=== PATIENT | female | born 1960 | race Caucasian/White ===

== ENCOUNTER 2018-08-15 13:49 | Inpatient (IN) | payer OTHER ==
[~2018-08-15] VITALS: Ht 177.8 cm; Wt 95.2 kg
[~2018-08-15 13:49] MED LIST: ALBU90OI INH; ALBU90OI61 INH; ASPI325 PO; BENZ100A PO; CALCAVITD PO; CODEINE PO; CYCL10 PO; DULO30 PO; Esgic Tablet1 EACH PO; FARXIGA5 MG PO; FIORINAL PO; GUAI120S1 PO; GUAI600ER PO; HYDMOR4 PO; IBUP800 PO; LEVA.63IS IH; LIRA0.6P IM; LIRA0.6P SC; LISI5 PO; LOVA20 PO; LOVA40 PO; METF500 PO; Norco 10-325 T1 EACH PO; OSEL75CA PO; PRED20 PO; PROM25 PO; ROSU5 PO; SERT100 PO
[2018-08-15 14:34] LABS: BASOPHILS ABSOLUTE AUTO 0.01 K/mm3 (0.00-0.23); BASOPHILS PERCENT AUTO 0 % (0-2); EOSINOPHILS ABSOLUTE AUTO 0.02 K/mm3 (0.00-0.68); EOSINOPHILS PERCENT AUTO 0 % (0-6); Hematocrit 49.4 % (33.0-51.0); Hemoglobin 14.6 g/dL (11.5-16.0); IMMATURE GRAN ABSOLUTE AUTO 0.03 K/mm3 (0.00-0.10); IMMATURE GRAN PERCENT AUTO 1 % (0-1); LYMPHOCYTES ABSOLUTE AUTO 1.83 K/mm3 (0.84-5.20); LYMPHOCYTES PERCENT AUTO 36 % (21-46); MONOCYTES ABSOLUTE AUTO 0.36 K/mm3 (0.16-1.47); MONOCYTES PERCENT AUTO 7 % (4-13); Mean Corpuscular HGB 28.1 pg (26.0-34.0); Mean Corpuscular HGB Conc 29.6 g/dL (31.5-36.5); Mean Corpuscular Volume 95 fL (80-100); Mean Platelet Volume 10.3 fL (9.1-12.4); NEUTROPHILS ABSOLUTE AUTO 2.91 K/mm3 (1.96-9.15); NEUTROPHILS PERCENT AUTO 56 % (41-73); NRBC ABSOLUTE 0.02 K/mm3 (0.00-0.02); NRBC Auto 0.4 /100 WBC (0.0-0.2); Platelet Count 171 K/mm3 (150-400); RDW Coefficient Variation 16.8 % (11.7-14.2); RDW Standard Deviation 57.7 fL (35.1-46.3); Red Blood Cell Count 5.19 M/mm3 (3.80-5.20); White Blood Cell Count 5.16 K/mm3 (4.00-11.30)
[2018-08-15 15:00] LABS: Alanine Aminotransfer (ALT/SGP 20 U/L (12-78); Albumin/Globulin Ratio 0.8 (0.8-1.8); Alk Phos 86 U/L (50-136); Anion Gap 3 mmol/L (6-16); Aspartate Aminotrans (AST/SGOT 10 U/L (12-37); Bilirubin, Total 0.2 mg/dL (0.1-1.0); Blood Urea Nitrogen 10 mg/dL (8-24); Bun/Creatinine Ratio 23.1 (12.0-20.0); CO2, Blood 32 mmol/L (21-32); Calcium, Blood 7.8 mg/dL (8.5-10.1); Chloride, Blood 107 mmol/L (98-108); Creatinine, Blood 0.43 mg/dL (0.40-1.00); Glomerular Filtration Rate >60 (60-); Glucose, Blood 101 mg/dL (70-99); Sodium, Blood 142 mmol/L (136-145)
--- NOTE | 2018-08-15 18:56 | NUR ---
PATIENT ARRIVED TO UNIT AT 1833. A&0 X4. INDEPENDENT IN THE ROOM. NO ACUTE NEEDS AT THIS TIME. AT THE BEDSIDE. RN TO GIVE REPORT TO ONCOMING NURSE.
[2018-08-15 21:07] LABS: Adenovirus Not Detected (NOT DETECT); Bordetella pertussis Not Detected (NOT DETECT); Chlamydophila pneumoniae Not Detected (NOT DETECT); Coronavirus 229E Not Detected (NOT DETECT); Coronavirus HKU1 Not Detected (NOT DETECT); Coronavirus NL63 Not Detected (NOT DETECT); Coronavirus OC43 Not Detected (NOT DETECT); Human Metapneumovirus Not Detected (NOT DETECT); Human Rhinovirus/Enterovirus Not Detected (NOT DETECT); Influenza A Not Detected (NOT DETECT); Influenza A/2009-H1 Not Detected (NOT DETECT); Influenza A/H1 Not Detected (NOT DETECT); Influenza A/H3 Not Detected (NOT DETECT); Influenza B Not Detected (NOT DETECT); Mycoplasma pneumoniae Not Detected (NOT DETECT); Parainfluenza Virus 1 Not Detected (NOT DETECT); Parainfluenza Virus 2 Not Detected (NOT DETECT); Parainfluenza Virus 3 Not Detected (NOT DETECT); Parainfluenza Virus 4 Not Detected (NOT DETECT); Respiratory Syncytial Virus Not Detected (NOT DETECT)
--- NOTE | 2018-08-16 04:42 | NUR ---
SHIFT SUMMARY PT SLOWLY FEELING IMPROVED. REQUESTED TO HAVE O2 REMOVED BECUASE IT WAS UNCOMFORTABLE. TRIALED PT ON RA, STARTED AT 91% BUT SHORTLY AFTER DROPPED INTO THE HIGH 70'S. PLACED ON 4 L O2 AND HUMIDIFIER PUT ON. PT REPORTS IMPROVEMENT AND HAS BEEN TOLERATED WELL SINCE. 92% ON 4 L. RESPIRATORY PANEL SENT AND CAME BACK NEGATIVE. URINE SENT WELL, HAVE NOT RECIEVED RESULTS FOR THIS. TELEMETRY PLACED, READING SINUS RHYTHM 99. PT'S LUNG SOUNDS DIMINISHED WITH INTERMITTENT WHEEZING. PT ATE AND DRANK WELL. VOIDED WELL. VSS. WILL CONTINUE TO MONITOR.
[2018-08-16 05:23] LABS: Hematocrit 50.4 % (33.0-51.0); Hemoglobin 14.7 g/dL (11.5-16.0); Mean Corpuscular HGB 27.4 pg (26.0-34.0); Mean Corpuscular HGB Conc 29.2 g/dL (31.5-36.5); Mean Corpuscular Volume 94 fL (80-100); Mean Platelet Volume 9.7 fL (9.1-12.4); Platelet Count 169 K/mm3 (150-400); RDW Coefficient Variation 17.2 % (11.7-14.2); RDW Standard Deviation 55.8 fL (35.1-46.3); Red Blood Cell Count 5.36 M/mm3 (3.80-5.20); White Blood Cell Count 4.89 K/mm3 (4.00-11.30)
[2018-08-16 06:00] LABS: Anion Gap 5 mmol/L (6-16); Blood Urea Nitrogen 14 mg/dL (8-24); Bun/Creatinine Ratio 34.3 (12.0-20.0); CO2, Blood 30 mmol/L (21-32); Calcium, Blood 8.1 mg/dL (8.5-10.1); Chloride, Blood 108 mmol/L (98-108); Creatinine, Blood 0.41 mg/dL (0.40-1.00); Glomerular Filtration Rate >60 (60-); Glucose, Blood 219 mg/dL (70-99); Potassium, Blood 4.5 mmol/L (3.5-5.5); Sodium, Blood 143 mmol/L (136-145)
--- NOTE | 2018-08-16 18:57 | NUR ---
PT PLEASANT AND COOPERATIVE T/O THIS SHIFT, NO C/O PAIN, I.S. GIVEN TO PT THIS AFTERNOON WITH GOOD RETURN DEMONSTRATION. PT INSTRUCTED TO USE EVERY HOUR WHILE AWAKE AND SHE VERBALIZED INSTRUCTIONS BACK TO ME. NO ACUTE CHANGES NOTED THIS SHIFT, WILL CONTINUE TO MONITOR AND REPORT TO ONCOMING RN
--- NOTE | 2018-08-17 03:52 | NUR ---
SHIFT SUMMARY PT ADMITTED FOR HYPOXIC RESPIRATORY FAILURE. FULL CODE. ADA DIET. TELE-SINUSTACH AT A RATE OF 102 PER NURSE HEAD. CBG AT AC AND HS. LOVENOX FOR DVT PROPHYLAXIS. INDEPENDENT IN ROOM. 18G IV TO R FA AND 20G IV TO L AC. TAKES MEDICATIONS WHOLE. POSSIBLE DISCHARGE TODAY. PT HAD C/O PAIN X1 AND SERNA X1 SO FAR THIS SHIFT, MEDICATED PER EMAR. PT HAS BEEN NOTED TO HAVE COUGH RECENTLY TONIGHT. NONE UNTIL THE PAST HALF AN HOUR OR SO. THE PT IS PLEASENT, COOPERATIVE, ALERT, AND ORIENTED. PT HAD APPEARED TO SLEEP COMFORTABLY UNTIL RECENTLY. NO APPARENT SIGNS OF ACUTE DISTRESS. ABLE TO MAKE NEEDS KNOWN AND CALL LIGHT IN REACH.
--- NOTE | 2018-08-17 12:56 | NUR ---
ECHOCARDIOGRAM COMPLETED
--- NOTE | 2018-08-17 19:26 | NUR ---
SHIFT SUMMARY PT DOZING MOST OF DAY WHEN NOT BEING BOTHERED. REPORTED SHE DIDN'T SLEEP WELL LAST NIGHT. AWAITING ECHO RESULTS FOR PT TO POTENTIALLY DISCHARGE TOMORROW. OXIMETRY THIS MORNING ON RA WAS 95% WHILE SITTING ON SIDE OF BED. WHILE RECLINING IN BED AND BREATHING MORE SHALLOWLY OXIMETRY 87-89% ON RA. O2 REPLACED AT 1.5L/M. DENIES RESP DISTRESS AT REST OR WITH ACTIVITY.
--- NOTE | 2018-08-18 03:37 | NUR ---
SHIFT SUMMARY NO APPARENT ACUTE CHANGES NOTED SO FAR THIS SHIFT. THE PT DID WAKE RECENTLY WITH COUGH AND MEDICATED PER EMAR, WILL RE-ASSESS FOR RESULTS. THE PT HAS APPEARED TO REST COMFORTABLY MOST OF THE NIGHT SO FAR THIS SHIFT. THE PT IS UPSET THAT SHE WAS NOT ABLE TO DISCHARGE ON DAY SHIFT AND THE PT STATED THAT SHE FELT LIKE COMMUNICATION WAS NOT VERY GOOD REGARDING HER DISCHARGE AND THE PLAN FOR HER TOMORROW. THE PT DOES CONTINUE TO BE PLEASENT AND COOPERATIVE. PT IS AWAKE AT THIS TIME, WARM BLANKETS PROVIDED FOR BACK PAIN AND MEDS PER EMAR. PT STATED PAIN IN BACK IS FROM COUGH, AND ALSO MEDICATED PER EMAR. PT IS ABLE TO MAKE NEEDS KNOWN AND CALL LIGHT IN REACH.
[2018-08-18] MEDS ORDERED: PRED20 PO (11:45)
[2018-08-18] MEDS ORDERED: ALBU90OI6 INH (11:46)
[2018-08-18] MEDS ORDERED: NYST100000 MT (12:46)
--- NOTE | 2018-08-18 14:00 | NUR ---
DISCHARGE INSTRUCTIONS COMPLETED AND DISCUSSED WITH PT EXPRESSING UNDERSTANDING. SCRIPTS FAXED TO [facility] ON [address] AND CLARIFIED MED WITH DR. HUTSON. TO [facility] VIA W/C WITH IN ATTENDANCE.
== END 2018-08-18 13:46 | disposition home or self-care (01) | DRG 205 ==
LOC: ER 13:49 → MEDS 15:17 → ENPENDDIS 08-18 10:00 → MEDS 08-18 13:46
PROVIDERS: Nurse Practitioner Acute Care; Physician Assistant; ADMIT Internal Medicine
DX: E66.2 Morbid (severe) obesity with alveolar hypoventilation (principal); J96.01 Acute respiratory failure with hypoxia; J98.11 Atelectasis; J45.901 Unspecified asthma with (acute) exacerbation; I48.2 Chronic atrial fibrillation; J98.4 Other disorders of lung; G43.709 Chronic migraine without aura, not intractable, without status migrainosus; F32.9 Major depressive disorder, single episode, unspecified; E11.9 Type 2 diabetes mellitus without complications; F17.290 Nicotine dependence, other tobacco product, uncomplicated; Z79.84 Long term (current) use of oral hypoglycemic drugs; Z68.30 Body mass index [BMI] 30.0-30.9, adult
CPT/HCPCS: 36415; 71045; 80048; 80053; 82947; 84145; 85025; 85027; 87449; 87486; 87581; 87633; 87798; 93005; 93010; 93306; 94640; 94644; 94760; 96361; 96374; 96375; 99285-25; J1650; J1940; J1956; J2930; J3480; J7030; J7512

== ENCOUNTER 2021-05-30 16:07 | Inpatient (IN) | payer OTHER ==
[~2021-05-30] VITALS: Ht 177.8 cm; Wt 115.5 kg
[~2021-05-30 16:07] MED LIST changes: +ALBU90OI6 INH; +NYST100000 MT
[2021-05-30 16:57] LABS: BASOPHILS ABSOLUTE AUTO 0.04 K/mm3 (0.00-0.23); BASOPHILS PERCENT AUTO 0 % (0-2); EOSINOPHILS ABSOLUTE AUTO 0.13 K/mm3 (0.00-0.68); EOSINOPHILS PERCENT AUTO 1 % (0-6); Hemoglobin 17.3 g/dL (11.5-16.0); IMMATURE GRAN ABSOLUTE AUTO 0.02 K/mm3 (0.00-0.10); IMMATURE GRAN PERCENT AUTO 0 % (0-1); LYMPHOCYTES ABSOLUTE AUTO 2.26 K/mm3 (0.84-5.20); LYMPHOCYTES PERCENT AUTO 24 % (21-46); MONOCYTES ABSOLUTE AUTO 0.62 K/mm3 (0.16-1.47); MONOCYTES PERCENT AUTO 7 % (4-13); Mean Corpuscular HGB 28.9 pg (26.0-34.0); Mean Corpuscular HGB Conc 31.1 g/dL (31.5-36.5); Mean Corpuscular Volume 93 fL (80-100); Mean Platelet Volume 10.8 fL (9.1-12.4); NEUTROPHILS ABSOLUTE AUTO 6.25 K/mm3 (1.96-9.15); NEUTROPHILS PERCENT AUTO 67 % (41-73); Platelet Count 229 K/mm3 (150-400); RDW Coefficient Variation 14.5 % (11.7-14.2); RDW Standard Deviation 49.7 fL (35.1-46.3); Red Blood Cell Count 5.99 M/mm3 (3.80-5.20); White Blood Cell Count 9.32 K/mm3 (4.00-11.30)
[2021-05-30 16:58] LABS: Hematocrit 55.6 % (33.0-51.0)
[2021-05-30 17:18] LABS: Alanine Aminotransfer (ALT/SGP 19 U/L (12-78); Albumin, Blood 3.4 g/dL (3.4-5.0); Albumin/Globulin Ratio 0.8 (0.8-1.8); Alk Phos 109 U/L (50-136); Anion Gap 3 mmol/L (6-16); Aspartate Aminotrans (AST/SGOT 9 U/L (12-37); Bilirubin, Total 0.2 mg/dL (0.1-1.0); Blood Urea Nitrogen 20 mg/dL (8-24); Bun/Creatinine Ratio 29.6 (12.0-20.0); CO2, Blood 28 mmol/L (21-32); Calcium, Blood 9.6 mg/dL (8.5-10.1); Chloride, Blood 108 mmol/L (98-108); Creatinine, Blood 0.68 mg/dL (0.40-1.00); Globulin, Blood 4.3 g/dL (2.2-4.0); Glomerular Filtration Rate >60 (60-); Glucose, Blood 142 mg/dL (70-99); Sodium, Blood 139 mmol/L (136-145); Total Protein, Blood 7.7 g/dL (6.4-8.2); Troponin I <0.015 ng/mL (0.000-0.040)
[2021-05-30 19:27] LABS: CPK Creatine Kinase 40 U/L (26-193)
[2021-05-31 01:53] LABS: BASOPHILS ABSOLUTE AUTO 0.04 K/mm3 (0.00-0.23); BASOPHILS PERCENT AUTO 1 % (0-2); EOSINOPHILS ABSOLUTE AUTO 0.15 K/mm3 (0.00-0.68); EOSINOPHILS PERCENT AUTO 2 % (0-6); Hematocrit 53.2 % (33.0-51.0); Hemoglobin 16.6 g/dL (11.5-16.0); IMMATURE GRAN ABSOLUTE AUTO 0.04 K/mm3 (0.00-0.10); IMMATURE GRAN PERCENT AUTO 1 % (0-1); LYMPHOCYTES ABSOLUTE AUTO 2.42 K/mm3 (0.84-5.20); LYMPHOCYTES PERCENT AUTO 28 % (21-46); MONOCYTES ABSOLUTE AUTO 0.78 K/mm3 (0.16-1.47); MONOCYTES PERCENT AUTO 9 % (4-13); Mean Corpuscular HGB 29.4 pg (26.0-34.0); Mean Corpuscular HGB Conc 31.2 g/dL (31.5-36.5); Mean Corpuscular Volume 94 fL (80-100); Mean Platelet Volume 10.8 fL (9.1-12.4); NEUTROPHILS ABSOLUTE AUTO 5.15 K/mm3 (1.96-9.15); NEUTROPHILS PERCENT AUTO 60 % (41-73); Platelet Count 202 K/mm3 (150-400); RDW Coefficient Variation 14.5 % (11.7-14.2); RDW Standard Deviation 49.8 fL (35.1-46.3); Red Blood Cell Count 5.64 M/mm3 (3.80-5.20); White Blood Cell Count 8.58 K/mm3 (4.00-11.30)
[2021-05-31 02:04] LABS: Alanine Aminotransfer (ALT/SGP 17 U/L (12-78); Albumin, Blood 3.3 g/dL (3.4-5.0); Alk Phos 99 U/L (50-136); Anion Gap 9 mmol/L (6-16); Aspartate Aminotrans (AST/SGOT 7 U/L (12-37); Bilirubin, Total 0.2 mg/dL (0.1-1.0); Blood Urea Nitrogen 22 mg/dL (8-24); Bun/Creatinine Ratio 31.5 (12.0-20.0); CO2, Blood 30 mmol/L (21-32); Calcium, Blood 8.9 mg/dL (8.5-10.1); Chloride, Blood 105 mmol/L (98-108); Globulin, Blood 3.2 g/dL (2.2-4.0); Glomerular Filtration Rate >60 (60-); Glucose, Blood 160 mg/dL (70-99); Potassium, Blood 3.6 mmol/L (3.5-5.5); Sodium, Blood 144 mmol/L (136-145); Total Protein, Blood 6.5 g/dL (6.4-8.2)
[2021-05-31 02:06] LABS: CPK Creatine Kinase 33 U/L (26-193); Troponin I <0.015 ng/mL (0.000-0.040)
--- NOTE | 2021-05-31 12:22 | NUR ---
Echocardiogram completed.
[2021-05-31] MEDS ORDERED: PIOG30 PO (13:07)
[2021-05-31] MEDS ORDERED: BUTALB-ACETAMI1 EAC6 PO (13:11)
[2021-05-31] MEDS ORDERED: TOPI25 PO (13:14)
--- NOTE | 2021-05-31 17:31 | NUR ---
SHIFT SUMMARY PATIENT ALERT AND ORIENTED X4, PLEASANT AND COOPERATIVE WITH CARE. THE PATIENT IS INDEPENDENT IN THE ROOM. ON TELE SINUS RHYTHM. OXYGEN DEMANDS INCREASED FROM 6LPM TO 8LPM HIGH FLOW THIS AFTERNOON. PATIENT IS SATTING AT 93% DOSE OF LASIX GIVEN PER MD ORDERS. PATIENT WILL RECEIVE INSULIN AT DINNER FOR COVERAGE PER SLIDING SCALE. VITAL SIGNS STABLE. THIS NURSE WILL CONTINUE TO CARE FOR THE PATIENT UNTIL SHIFT REPORT IS GIVEN TO ONCOMING NURSE.
[2021-06-01 04:57] LABS: Hematocrit 52.3 % (33.0-51.0); Hemoglobin 15.9 g/dL (11.5-16.0); Mean Corpuscular HGB 28.8 pg (26.0-34.0); Mean Corpuscular HGB Conc 30.4 g/dL (31.5-36.5); Mean Corpuscular Volume 95 fL (80-100); Mean Platelet Volume 11.1 fL (9.1-12.4); Platelet Count 191 K/mm3 (150-400); RDW Coefficient Variation 14.1 % (11.7-14.2); RDW Standard Deviation 49.1 fL (35.1-46.3); Red Blood Cell Count 5.53 M/mm3 (3.80-5.20); White Blood Cell Count 7.17 K/mm3 (4.00-11.30)
[2021-06-01 05:31] LABS: Anion Gap 7 mmol/L (6-16); Blood Urea Nitrogen 26 mg/dL (8-24); Bun/Creatinine Ratio 42.6 (12.0-20.0); CO2, Blood 32 mmol/L (21-32); Calcium, Blood 8.7 mg/dL (8.5-10.1); Chloride, Blood 102 mmol/L (98-108); Creatinine, Blood 0.61 mg/dL (0.40-1.00); Glomerular Filtration Rate >60 (60-); Glucose, Blood 202 mg/dL (70-99); Potassium, Blood 3.6 mmol/L (3.5-5.5); Sodium, Blood 141 mmol/L (136-145)
--- NOTE | 2021-06-01 07:06 | NUR ---
SHIFT SUMMARY PT IS A 60 Y/O FEMALE, ADMITTED FOR NEW DX CHF. SHE IS A&O X 4, INDEPENDENT IN THE ROOM. CURRENTLY ON 8L O2 VIA HIGH FLOW. VITAL SIGNS STABLE. TELE SHOWS NSR IN THE 70S. PT REPORTED A MIGRAINE. HOSPITALIST DR DARLING INFORMED, AND REMIGIO ORDERED D/T PT USING IT AT HOME FOR MIGRAINES. NO C/O OTHER ACUTE PAIN, NAUSEA OR SOB. NO ACUTE CHANGES IN PT CONDITION NOTED DURING THE NIGHT. WILL CONTINUE TO MONITOR AND TREAT PER EMAR UNTIL HAND OFF TO DAY SHIFT RN.
--- NOTE | 2021-06-01 17:24 | NUR ---
SHIFT SUMMARY PATIENT ALERT AND ORIENTED X4, PLEASANT AND COOPERATIVE WITH CARE. PATIENT IS INDEPENDENT IN ROOM. ON 7LPM HIGH FLOW 02. SATTING ABOVE 90% PATIENT MEDICATED ONCE FOR MIRGRANE. PATIENT RECEIVED COVERAGE FOR INSULIN PER SLIDING SCALE X3 THIS SHIFT. PATIENT IS CURRENTLY EATING DINNER. NO ACUTE CHANGES THIS SHIFT. CALL LIGHT WITHIN REACH. PLAN FOR PLATE HANGER CONSULT POSSIBLY TOMORROW. THIS NURSE WILL CONTINUE TO CARE FOR THE PATIENT UNTIL SHIFT REPORT IS GIVEN TO ONCOMING NURSE.
[2021-06-02 04:52] LABS: Hematocrit 52.1 % (33.0-51.0); Hemoglobin 15.7 g/dL (11.5-16.0); Mean Corpuscular HGB Conc 30.1 g/dL (31.5-36.5); Mean Corpuscular Volume 96 fL (80-100); Mean Platelet Volume 10.6 fL (9.1-12.4); Platelet Count 187 K/mm3 (150-400); RDW Coefficient Variation 14.2 % (11.7-14.2); RDW Standard Deviation 50.2 fL (35.1-46.3); Red Blood Cell Count 5.41 M/mm3 (3.80-5.20); White Blood Cell Count 8.11 K/mm3 (4.00-11.30)
[2021-06-02 05:19] LABS: Alanine Aminotransfer (ALT/SGP 15 U/L (12-78); Albumin, Blood 3.2 g/dL (3.4-5.0); Alk Phos 89 U/L (50-136); Anion Gap 3 mmol/L (6-16); Aspartate Aminotrans (AST/SGOT 7 U/L (12-37); Bilirubin, Total 0.2 mg/dL (0.1-1.0); Blood Urea Nitrogen 25 mg/dL (8-24); Bun/Creatinine Ratio 42.9 (12.0-20.0); CO2, Blood 34 mmol/L (21-32); Chloride, Blood 104 mmol/L (98-108); Creatinine, Blood 0.58 mg/dL (0.40-1.00); Globulin, Blood 3.1 g/dL (2.2-4.0); Glomerular Filtration Rate >60 (60-); Glucose, Blood 161 mg/dL (70-99); Potassium, Blood 4.2 mmol/L (3.5-5.5); Sodium, Blood 141 mmol/L (136-145); Total Protein, Blood 6.3 g/dL (6.4-8.2)
--- NOTE | 2021-06-02 06:37 | NUR ---
SHIFT SUMMARY PT IS A 60 Y/O MALE, ADMITTED FOR ACUTE CHF. SHE IS A70 X 4, INDEPENDENT IN THE ROOM. NO C/O ACUTE NAUSEA OR SOB, PT DID REPORT A MIGRAINE AND WAS MEDICATED WITH PRN FIORICET. PT ON 7L O2 VIA NC, HIGH FLOW. SATTING > 90%. VITAL SIGN STABLE. NO ACUTE CHANGES IN PT CONDITION NOTED DURING THE NIGHT. WILL CONTINUE TO MONITOR AND TREAT PER EMAR UNTIL HAND OFF TO DAY SHIFT RN.
[2021-06-02] MEDS ORDERED: SERTRALINE HCL150 MG PO (15:45)
[2021-06-02] MEDS ORDERED: FURO20 PO (15:46)
[2021-06-02] MEDS ORDERED: HYDRA25 (15:46)
--- NOTE | 2021-06-02 16:52 | NUR ---
DISCHARGE NOTE PATIENT WAS DISCHARGED THIS SHIFT AT 1645 VIA WHEELCHAIR WITH SPOUSE. PATIENT VERBALIZED UNDERSTANDING OF DISCHARGE INSTRUCTIONS. PATIENT WENT HOME WITH OXYGEN. DON IS MEETING THEM AT HOME TO SET UP. VSS.
== END 2021-06-02 16:39 | disposition home or self-care (01) | DRG 291 ==
LOC: ER 16:07 → ERHOLD 16:08 → ER 16:08 → MEDS 05-31 11:45 → ERHOLD 05-31 11:45 → MEDS 05-31 11:45 → ERHOLD 05-31 16:09 → MEDS 05-31 23:11
PROVIDERS: Internal Medicine; Physician Assistant; ADMIT Internal Medicine
DX: I11.0 Hypertensive heart disease with heart failure (principal); J96.01 Acute respiratory failure with hypoxia; E66.2 Morbid (severe) obesity with alveolar hypoventilation; J45.901 Unspecified asthma with (acute) exacerbation; I50.9 Heart failure, unspecified; I27.21 Secondary pulmonary arterial hypertension; I48.0 Paroxysmal atrial fibrillation; G43.909 Migraine, unspecified, not intractable, without status migrainosus; E11.9 Type 2 diabetes mellitus without complications; Z68.28 Body mass index [BMI] 28.0-28.9, adult; I36.1 Nonrheumatic tricuspid (valve) insufficiency; F32.9 Major depressive disorder, single episode, unspecified; E78.5 Hyperlipidemia, unspecified; Z88.1 Allergy status to other antibiotic agents; F17.210 Nicotine dependence, cigarettes, uncomplicated; Z79.84 Long term (current) use of oral hypoglycemic drugs; Z79.52 Long term (current) use of systemic steroids; Z79.899 Other long term (current) drug therapy; Z90.710 Acquired absence of both cervix and uterus; Z28.21 Immunization not carried out because of patient refusal
CPT/HCPCS: 36415; 71046; 71260; 80048; 80053; 82550; 82947; 83880; 84439; 84443; 84484; 85025; 85027; 85379; 93005; 93010; 93306; 94760; 94761; 96374; 96376; 99285-25; A9270; G0378; J1650; J1940; Q9967

== ENCOUNTER 2024-10-25 13:49 | Emergency (ER) | payer OTHER ==
[~2024-10-25] VITALS: Ht 177.8 cm; Wt 104.3 kg
[~2024-10-25 13:49] MED LIST changes: +BUTALB-ACETAMI1 EAC6 PO; +FURO20 PO; +HYDRA25; +PAXIL40 M1 PO; +PIOG30 PO; +SERTRALINE HCL150 MG PO; +TOPI25 PO; +TORSE20 PO
[2024-10-25] MEDS ORDERED: Acetaminophen 500 MG Tab PO ONE (14:30)
[2024-10-25] MEDS ORDERED: Ibuprofen 600 MG Tab PO ONE (14:30)
[2024-10-25 18:52] VITALS: BP 150/81
[2024-10-25] MEDS ORDERED: ACET500 PO (19:05)
[2024-10-25] MEDS ORDERED: IBUP600 PO (19:05)
[2024-10-25] MEDS ORDERED: LIDO700A20 TOP (19:07)
[2024-10-25] MEDS ORDERED: OxyCODONE 10/Acetamin 325 TABLET PO ONE (19:10)
== END 2024-10-25 19:18 | disposition home or self-care (01) ==
LOC: ER 13:49
DX: M54.50 Low back pain, unspecified (principal); E11.9 Type 2 diabetes mellitus without complications; E78.5 Hyperlipidemia, unspecified; F17.210 Nicotine dependence, cigarettes, uncomplicated; W18.2XXA Fall in (into) shower or empty bathtub, initial encounter; Z88.8 Allergy status to other drugs, medicaments and biological substances; Z79.84 Long term (current) use of oral hypoglycemic drugs; Z79.899 Other long term (current) drug therapy
CPT/HCPCS: 71045; 72131; 99284-25; A9270